=== PATIENT | male | born 1995 | race Caucasian/White ===

== ENCOUNTER 2020-03-05 09:35 | Emergency (ER) | payer OTHER, SELFPAY ==
[2020-03-05 10:10] VITALS: BP 132/80; PULSE 98; RESP 16; TEMP 36.8; O2SAT 98
--- NOTE | 2020-03-05 10:26 | ED.SKABFB ---
HPI - Skin/Abscess/Foreign Bdy General Chief complaint: Skin/Abscess/Foreign Body Stated complaint: insect bite Time Seen by Provider: 03/05/20 10:24 Source: patient and RN notes reviewed Mode of arrival: ambulatory Limitations: no limitations History of Present Illness HPI narrative: 24-year-old male presents with concern for red, tender area on his right upper shoulder. Denies any injury, trauma to the area. Reports a small blister at the center of the painful area. He denies malaise, reports tactile fever. MD complaint: insect bite/sting Related Data Allergies Allergy/AdvReac Type Severity Reaction Status Date / Time No Known Allergies Allergy Unverified 10/26/15 22:02 Review of Systems Review of Systems: Narrative: CONSTITUTIONAL: Denies malaise, chills, sweats. Reports tactile fever. ENT: Denies swollen lips, tongue, difficulty swallowing CARDIOVASCULAR: Denies chest pain, palpitations, or edema. RESPIRATORY: Denies cough or dyspnea. GASTROINTESTINAL: Denies abdominal pain, nausea, vomiting, diarrhea SKIN: Reports red, warm, tender area on right shoulder MUSCULOSKELETAL: Denies myalgia. NEUROLOGIC: Denies numbness, weakness, or headache. All systems reviewed & are unremarkable except as noted in HPI and below PMFSH Social History Social History Smoking status: Never smoker Second hand tobacco smoke exposure: Yes Alcohol intake: current Drinks per week: 70 Substance use: current Substance use type: marijuana Comments At time of signature, agree with nursing past medical, surgical, social and family history. There is no relevant family history pertinent to the presenting complaint Exam Narrative: Exam Narrative: GENERAL: Well-appearing, well-nourished, and in no acute distress. HEAD: Normocephalic EYES: PERRLA, conjunctivae clear ENT: Nares clear. Mucous membranes moist. NECK: Supple. No lymphadenopathy. CHEST: No respiratory distress. Speaks in full sentences. HEART: Regular rate and rhythm. EXTREMITIES: Right arm and shoulder have grossly normal range of motion, grossly normal strength and sensation. SKIN: Warm, dry. Erythema, induration, warmth noted to the right upper trapezius area between the neck and shoulder consistent with cellulitis, small intact blister with serous fluid noted to the center of the erythematous area NEURO: Alert and oriented x3. PSYCH: Normal mood and affect Course Course Emergency Course: Patient is aware of diagnosis, understands and agrees to treatment plan. Anticipatory guidance given. Patient agrees to follow-up as directed and is aware of reasons to seek care at the emergency department. Portions of this record may have been created with voice recognition software Vital Signs Vital signs: Vital Signs Temperature 98.3 F 03/05/20 10:10 Pulse Rate 98 03/05/20 10:10 Respiratory Rate 16 03/05/20 10:10 Blood Pressure 132/80 03/05/20 10:10 Pulse Oximetry 98 03/05/20 10:10 Temperature 98.3 F 03/05/20 10:10 Pulse Rate 98 03/05/20 10:10 Respiratory Rate 16 03/05/20 10:10 Blood Pressure 132/80 03/05/20 10:10 Pulse Oximetry 98 03/05/20 10:10 Reviewed. Pt has been instructed to follow up with his primary care provider within the next week regarding his elevated blood pressure today. MDM - Skin/Abscess/Foreign Bdy MDM Narrative Medical decision making narrative: Exam findings show no acute concerns or changes; patient is non-toxic appearing and is in no distress. Patient is appropriate for outpatient treatment and follow-up. Differential Diagnosis Differential diagnosis: Likely abscess of skin or subcutaneous tissue, urticaria, cellulitis, insect bites and contact dermatitis Critical Care Time Critical Care Time Critical Care Time: No Discharge Plan Discharge Clinical Impression: Cellulitis Qualifiers: Site of cellulitis: other site Qualified Code(s): L03.818 - Celluliti
== END 2020-03-05 10:38 | disposition home or self-care (01) ==
PROVIDERS: Emergency Provider Nurse Practitioner; PCP Internal Medicine
DX: L03.312 Cellulitis of back [any part except buttock and flank] (principal); R03.0 Elevated blood-pressure reading, without diagnosis of hypertension
CPT/HCPCS: 99213; G0463

== ENCOUNTER 2023-05-12 18:01 | Emergency (ER) | payer BC, SELFPAY ==
--- NOTE | ~2023-05-12 | XR_ITS ---
AP and lateral views of the right tibia/fibula Clinical History: Injury Findings: No acute fracture or dislocation is seen. Osseous alignment is anatomic. Joint spaces are p reserved without significant erosive or degenerative change. Possible soft tissue laceration of the m idcalf. Impression: No osseous or articular abnormality. Possible soft tissue laceration of the midcalf. Correlate with physical exam. Reviewed, dictated and finalized at location . Impression: No osseous or articular abnormality. Possible soft tissue laceration of the midcalf. Correlate with physical exam.
[2023-05-12 18:13] VITALS: BP 159/97; PULSE 115; RESP 18; TEMP 36.8; O2SAT 98
[2023-05-12 19:16] VITALS: BP 137/89; RESP 20; O2SAT 99
--- NOTE | 2023-05-12 19:19 | PC.NURSE ---
Assumed care from ARGENTINA Barreto at this time.
[2023-05-12] MEDS: TETANUS,DIPHTHERIA,AC PERTUSSIS ADULT (0.5 ML) BOOSTRIX IM (19:25)
[2023-05-12] MEDS: HYDROcodone/acetaminophen (*CRX) 5-325 MG TABLET 1 TAB PO ×2 (19:26→22:17)
[2023-05-12] MEDS: ONDANSETRON HCL ODT 4 MG TABLET PO (19:26)
[2023-05-12 19:31] VITALS: BP 131/91; RESP 18; O2SAT 96
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
[2023-05-12 20:01] VITALS: BP 131/87; RESP 19; O2SAT 97
[2023-05-12 20:31] VITALS: BP 129/73; RESP 20; O2SAT 98
[2023-05-12] MEDS: CEPHALEXIN 500 MG CAPSULE PO (22:17)
[2023-05-12 22:20] VITALS: BP 134/86; PULSE 78; RESP 20; O2SAT 99
== END 2023-05-12 22:23 | disposition home or self-care (01) ==
PROVIDERS: Emergency Provider Student in an Organized Health Care Education/Training Program; PCP Internal Medicine
DX: S81.811A Laceration without foreign body, right lower leg, initial encounter (principal); Z23 Encounter for immunization; V28.49XA Other motorcycle driver injured in noncollision transport accident in traffic accident, initial encounter
CPT/HCPCS: 12001; 12035; 73590; 90471; 90715; 99283; A9270

== ENCOUNTER 2025-05-16 18:31 | Emergency (ER) | payer OTHER, BC, SELFPAY ==
[2025-05-16] VITALS (9 sets, daily range): BP systolic 121–156; BP diastolic 73–96; PULSE 82–114; RESP 9–23; TEMP 36.4; O2SAT 95–100
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
--- NOTE | ~2025-05-16 | CT_ITS ---
CTA neck Clinical History: trauma Technique: Helical images thoracic inlet through skull base 100 mL IV contrast Coronal, sagittal reformats. Multiplanar metastases CT images acquired with automatic exposure control for dose reduction. DLP: 609 mGy-cm Comparison: None Findings: NASCET Criteria utilized CTA FINDINGS: Aortic arch: No aneurysm or dissection. Great vessel origins: No stenosis. CCAs: Patent. Cervical ICAs: Patent. Vertebral Arteries: Patent. Visualized [place]: Unremarkable. NON-CTA FINDINGS: Lung Apices: Clear. Thyroid: Unremarkable. Nodes: No enlarged nodes. Bones: No acute bony abnormality. IMPRESSION: 1. No acute findings. Reviewed, dictated and finalized at location A. IMPRESSION: 1. No acute findings.
--- OUTSIDE RECORDS SUMMARY | 2025-05-16 18:33 | XMS_ITS | Clinical Summary ---
Author Organization [facility] Address [address] [place] [address] Care Team Providers Care Gallery Intern Name Role Phone Unavailable Primary Care Provider Unavailabl e Source Comments [facility],non-owned Affiliates and Associated Physician Practices is amultiple site organization consisting of ambulatory clinics and hospital sitesin [place], [place], [place] and [place]. This disclosure is being madepursuant to the Care Everywhere program and may not contain all information available regarding this patient. Last updated 18.[facility] Social History Tobacco Use Types Packs/Day Years Used Date Smoking Tobacco: Never Assessed Sex and Gender Information Value Date Recorded Sex Assigned at Not on file Legal Sex Male 12:10 PM CDT Gender Identity Not on file Sexual Orientation Not on file Plan of Treatment Health Maintenance Due Date Last Done Comments HIV SCREENING 11/28/2010 HEPATITIS C SCREENING 11/24/2013 DTAP/TDAP/TD VACCINES (1 - Tdap) 11/28/2014 HEPATITIS B VACCINE (1 of 3 - 19+ 3-dose series) 11/28/2014 HPV VACCINE (1 - 3-dose SCDM series) 11/28/2022 DEPRESSION SCREENING 09/09/2024 COVID-19 VACCINE ( - 2023-2 5 season) 2025 INFLUENZA VACCINE (#1) 2025 ZOSTER VACCINE (1 of 2) 11/28/2045 HIB VACCINE Aged Out No longer eligi ble based on patient's age to complete this topic MENINGOCOCCAL (Group B) VACC INE SHARED DECISION-MAKING Aged Out No longer eligibl e based on patient's age to complete this topic MENINGOCOCCAL GROUPS A/C/Y/W VACCINE Aged Out No longer eligible b ased on patient's age to complete this topic PNEUMOCOCCAL VACCINE Aged Out No long er eligible based on patient's age to complete this topic
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
[2025-05-16 19:05] LABS: Hematocrit 47.5 % (42.0-52.0); Hemoglobin 16.5 g/dL (14.0-18.0); Immature Granulocyte Percent A 0.6 % (0-0.5); Lymphocytes Absolute Auto 2.89 K/mm3 (0.9-3.2); Mean Corpuscular HGB Conc 34.7 g/dl (32-36); Mean Corpuscular Hemoglobin 34.2 pg (26-34); Mean Corpuscular Volume 98.5 fl (80-100); Nucleated Red Blood Cells Absolute Auto 0.000 K/mm3 (0.0-0.012); Nucleated Red Blood Cells Perc 0.0 % (0.0-0.2); Platelet Count Result 333 k/mm3 (150-375); Red Blood Count 4.82 M/mm3 (4.6-6.20); White Blood Count 18.5 K/mm3 (4.5-10.0)
[2025-05-16 19:06] LABS: Estimated CRCL calculation 72 ml/min; Estimated Glomerular Filt Rate 60
[2025-05-16 19:17] LABS: INR 0.9; Prothrombin Time 12.6 Seconds (11.1-14.7)
[2025-05-16 19:18] LABS: Partial Thromboplastin Time 25.6 Seconds (22.3-36.8)
[2025-05-16 19:20] LABS: Alanine Aminotransferase 73 U/L (6-50); Albumin Level 5.0 g/dL (3.5-5.1); Alkaline Phosphatase 80 U/L (38-126); Anion Gap 14 mmol/L (4-12); Aspartate Amino Transferase 97 U/L (17-59); Bilirubin,Total 0.5 mg/dL (0.2-1.3); Blood Urea Nitrogen 6 mg/dL (9-20); Calcium 9.7 mg/dL (8.4-10.2); Carbon Dioxide 26 mmol/L (22-30); Chloride 106 mmol/L (98-107); Estimated CRCL calculation 94 ml/min; Estimated Glomerular Filt Rate > 60; Glucose 142 mg/dL (65-110); Lipase 483 U/L (23-300); Potassium 3.7 mmol/L (3.4-5.0); Sodium 146 mmol/L (137-145); Total Protein 8.4 g/dL (6.3-8.2)
--- NOTE | 2025-05-16 19:39 | PC.NURSE ---
Received report from ARGENTINA Miles for cont. of care. Pt AOx2, with C-collar in place, on cont. 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 Pt c/o 10/10 lower back pain, denies n/v, able to answer questions appropriately. Pt made aware need urine sample.
--- OUTSIDE RECORDS SUMMARY | 2025-05-16 19:56 | XMS_ITS | Clinical Summary ---
Author Organization [facility] Address [address] [place] [address] Care Team Providers Care Kiln Drawer Name Role Phone Unavailable Primary Care Provider Unavailabl e Source Comments [facility] [place] [facility],non-owned Affiliates and Associated Physician Practices is amultiple site organization consisting of ambulatory clinics and hospital sitesin [place], [place], [place] and [place]. This disclosure is being madepursuant to the Care Everywhere program and may not contain all information available regarding this patient. Last updated 18.[facility] Social History Tobacco Use Types Packs/Day Years [...]
[2025-05-16] MEDS: ONDANSETRON INJ 4 MG/2 ML VIAL IV PUSH (20:19)
[2025-05-16] MEDS: SODIUM CHLORIDE 0.9% IV 1,000 ML 999 ML IV CONT ×2 (20:23→21:21)
[2025-05-16 21:22] LABS: Add Urine Microscopic? YES; Appearance Urine Cloudy (Clear); Glucose Urine UA Negative (Negative); Leukocyte Esterase Ur Negative LEU/UL (Negative); Nitrate Urine Negative (Negative); Non Pathogenic Casts 0-2; Specific Grav Ur > 1.045 (1.001-1.035)
[2025-05-17] MEDS: ONDANSETRON INJ 4 MG/2 ML VIAL IV PUSH (01:53)
[2025-05-17] MEDS: NEOMYCIN/POLYMYXIN/BACITRACIN OINTMENT 15 GM TUBE 1 APPLIC TOPICAL (01:53)
[2025-05-17 01:56] VITALS: BP 142/78; PULSE 73; RESP 16; O2SAT 100
--- NOTE | 2025-05-17 02:12 | PC.NURSE ---
Pt c/o feeling nauseated prior to leaving. ERP notified. Zofran ordered and given.
== END 2025-05-17 02:13 | disposition home or self-care (01) ==
PROVIDERS: Emergency Medicine; Emergency Provider Emergency Medicine; PCP Internal Medicine
DX: S00.03XA Contusion of scalp, initial encounter (principal); S30.0XXA Contusion of lower back and pelvis, initial encounter; S19.9XXA Unspecified injury of neck, initial encounter; F10.129 Alcohol abuse with intoxication, unspecified; Y90.8 Blood alcohol level of 240 mg/100 ml or more; Z87.891 Personal history of nicotine dependence; K76.0 Fatty (change of) liver, not elsewhere classified; V28.49XA Other motorcycle driver injured in noncollision transport accident in traffic accident, initial encounter
CPT/HCPCS: 36415; 70450; 70498; 71260; 73562; 73610; 74177; 80053; 81001; 82077; 83605; 83690; 85025; 85610; 85730; 86850; 86900; 86901; 96361; 96374; 99284; A9270; J2405; J7030; Q9967